=== PATIENT | female | born 1955 | race Caucasian/White ===

== ENCOUNTER 2018-08-28 07:58 | Day surgery (SDC) | payer BC ==
--- NOTE | 2018-08-27 10:37 | HP ---
DATE OF SURGERY: 08/28/2018 ADMISSION DIAGNOSIS: Eleven year follow up colonoscopy. ANTICIPATED PROCEDURE: Colonoscopy. HISTORY OF PRESENT ILLNESS: The patient's last colonoscopy was eleven years ago, presents for colonoscopy. PAST MEDICAL HISTORY: ALLERGIES: PENICILLIN. MEDICATIONS: Omeprazole, Benicar, Lipitor. PAST SURGICAL HISTORY: Right knee. SOCIAL HISTORY: Negative. FAMILY HISTORY: Negative. REVIEW OF SYSTEMS: Negative. PHYSICAL EXAMINATION: VITAL SIGNS: Normal. CHEST: Clear. COR: Regular. ABDOMEN: Satisfactory. IMPRESSION: Eleven year follow up colonoscopy. PLAN: Colonoscopy.
[2018-08-28] MEDS ORDERED: DIPRIVAN 200 MG/20 ML IV ONE (07:59)
[2018-08-28] MEDS ORDERED: Lactated Ringers 1,000 ML IV ONE ×2 (08:06→10:41)
[2018-08-28] MEDS ORDERED: Lactated Ringers 1,000 ML IV SCH (08:30)
--- NOTE | 2018-08-28 10:58 | OP ---
SURGERY DATE/TIME: 08/28/2018 1020 PREOPERATIVE DIAGNOSIS: Screening. POSTOPERATIVE DIAGNOSIS: Four rectal polyps small. PROCEDURE: Colonoscopy complete to cecum with cold polypectomy x4 rectum. SURGEON: Avi Ac M.D. ANESTHESIA: MAC. COMPLICATIONS: None. CONDITION: Stable. INDICATION: A patient requiring evaluation. DESCRIPTION OF PROCEDURE: Taken to endoscopy. Left lateral decubitus position. Anal digital examination satisfactory. Scope introduced. Scope advanced to the cecum. Base of cecum, ileocecal valve was normal. Ascending, hepatic, transverse, splenic, descending, sigmoid, rectum, there were four small 6 mm polyps probably hyperplastic in the mid to upper rectum taken with cold biopsy forceps submitted in one container. There were no substantial hemorrhoids. Mucosa was normal otherwise. Bowel prep 9 out of 9. Withdrawal time was 6 minutes.
[2018-08-28 12:31] VITALS: O2SAT 93
[2018-08-28 12:34] VITALS: BP 121/57; PULSE 76
== END 2018-08-28 11:40 | disposition home or self-care (01) ==
LOC: SDC 07:58
PROVIDERS: ATTEND Surgery
DX: Z12.11 Encounter for screening for malignant neoplasm of colon (principal); K62.1 Rectal polyp
CPT/HCPCS: 88305; 94250; J2704

== ENCOUNTER 2021-05-11 07:05 | Day surgery (SDC) | payer BC ==
--- NOTE | 2021-05-05 14:38 | HP ---
DATE OF SURGERY: 05/11/2021 HISTORY OF PRESENT ILLNESS: The patient is a 66 year-old female who presents with some complaints of left upper quadrant pain. The patient had a gallbladder ultrasound with some stones on it. The patient sees Dr. Nicolas Ariza for some liver steatosis. Reports some anemia. Last hemoglobin 11. She states she has low iron. The patient states that this left upper quadrant pain is flared up by greasy foods. The patient has anemia and has not had GI work up for that. Last colonoscope was in 2018 and she had four hyperplastic polyps. She has never had an EGD. The patient denies any rectal bleeding. PAST MEDICAL HISTORY: Reflux, gout, diabetes, hyperlipidemia, anxiety, hypertension. PAST SURGICAL HISTORY: Bilateral knee replacement. ALLERGIES: PENICILLIN. MEDICATIONS: Omeprazole, Allopurinol, Metformin, vitamin D, paroxetine, atorvastatin, calcium. FAMILY HISTORY: Heart disease, diabetes, atrial fibrillation, kidney disease. SOCIAL HISTORY: None. REVIEW OF SYSTEMS: CONSTITUTIONAL: Denies fever or chills. CHEST: Denies shortness of breath. CVS: Denies chest pain. ABDOMEN: She reports left upper quadrant abdominal pain. Denies nausea, vomiting, diarrhea, constipation or rectal bleeding.. INTEGUMENTARY: Negative. PHYSICAL EXAMINATION: GENERAL: No acute distress. CHEST: Nonlabored. No shortness of breath. CVS: Regular rate and rhythm. ABDOMEN: Soft. EXTREMITIES: No edema. NEUROLOGIC: Alert. PSYCHIATRIC: Appropriate. IMPRESSION: Anemia. PLAN: EGD and colonoscopy with Dr. Avi Ac and also plan for probably laparoscopic cholecystectomy at a later date. As dictated by Julia Lang NP.
[2021-05-11] MEDS ORDERED: Lactated Ringers 1,000 ML IV SCH (07:30)
[2021-05-11] MEDS ORDERED: PHENYLEPHRINE HCL ONE (09:09)
[2021-05-11 09:56] VITALS: PULSE 67; O2SAT 100
[2021-05-11] MEDS ORDERED: Lactated Ringers 1,000 ML IV ONE (09:56)
[2021-05-11 10:20] VITALS: BP 117/58
--- NOTE | 2021-05-11 13:50 | OP ---
SURGERY DATE/TIME: 05/11/2021 0858 PREOPERATIVE DIAGNOSIS: Anemia, follow up polyps. POSTOPERATIVE DIAGNOSES: Three polyps 1 cm sigmoid, 8 mm in hepatic flexure, 1 cm cecal. PROCEDURES: 1) EGD. 2) Colonoscopy complete to cecum. 3) Hot polypectomy x3. SURGEON: Avi Ac M.D. ANESTHESIA: MAC. COMPLICATIONS: None. CONDITION: Stable. INDICATION: A patient requiring evaluation for anemia, hemoglobin 10. She also has history of polyps. She also has history of reflux on omeprazole. DESCRIPTION OF PROCEDURE: She was taken to endoscopy. Left lateral decubitus position. Pharyngoesophageal junction normal. Esophagus normal down to gastroesophageal junction. A very light rim of esophagitis grade 1. I think the omeprazole is exhibiting excellent control. No hiatal hernia. Fundus, body and antrum normal. Pylorus normal. Duodenal bulb normal. Second portion normal. The scope was withdrawn looped upon itself. No hiatal hernia. Scope withdrawn. Anal digital examination satisfactory. There is moderate internal hemorrhoids. There may have been a small posterior fissure rectally at some time that healed up. Slight band there. Scope introduced. Scope advanced to the cecum. Excellent prep. Normal colon. Base of the cecum 1 cm polyp taken with hot biopsy forceps to extinction. The appendiceal orifice is normal. The ileocecal valve is normal. The base of the cecum normal. Ascending satisfactory. Hepatic flexure 8 mm polyp taken with hot biopsy forceps to extinction. Transverse, splenic, descending, sigmoid. In the mid sigmoid, 1 cm polyp taken with hot biopsy forceps to extinction. Rectum, anus moderate internal hemorrhoids. The patient tolerated the procedure satisfactorily. Follow up three years. She will check on her pathology report. We will do a small bowel follow through for completeness as we did not really find a specific etiology for her anemia and she also incidentally has gallstones which will be addressed shortly, too.
== END 2021-05-11 10:24 | disposition home or self-care (01) ==
LOC: SDC 07:05
PROVIDERS: ATTEND Surgery
DX: D12.0 Benign neoplasm of cecum (principal); D12.3 Benign neoplasm of transverse colon; D64.9 Anemia, unspecified; K64.8 Other hemorrhoids; Z86.010 Personal history of colon polyps; Z79.899 Other long term (current) drug therapy; E11.9 Type 2 diabetes mellitus without complications; I10 Essential (primary) hypertension
CPT/HCPCS: 82947; 88305; J2370

== ENCOUNTER 2021-08-03 10:52 | Day surgery (SDC) | payer BC ==
--- NOTE | 2021-07-31 09:40 | HP ---
DATE OF SURGERY: 08/03/2021 HISTORY OF PRESENT ILLNESS: The patient presents with some complaints of abdominal pain and really pain has been minimal with food lately. The patient does have an ultrasound showing that there has been some cholelithiasis of the gallbladder. The patient does occasionally have some left upper quadrant pain. Apparently the patient also has some liver steatosis that the patient has seen Dr. Ariza for in the past. The patient does finally state that fried foods do aggravate this pain. We have done prior endoscopy on this patient to make sure there was nothing else that we were missing. Will proceed with cholecystectomy at this time. PAST MEDICAL HISTORY: Gastroesophageal reflux disease. Gout. Diabetes. Hyperlipidemia. Anxiety. Hypertension. PAST SURGICAL HISTORY: Bilateral knee surgery. ALLERGIES: PENICILLIN. MEDICATIONS: Omeprazole, Allopurinol, Metformin, vitamin D, paroxetine, atorvastatin, calcium. FAMILY HISTORY: Diabetes, heart disease, kidney disease, atrial fibrillation. SOCIAL HISTORY: None reported. REVIEW OF SYSTEMS: CONSTITUTIONAL: Denies fever or chills. CHEST: Denies shortness of breath. CVS: Denies chest pain. ABDOMEN: Reports left upper quadrant pain. Denies nausea, vomiting, diarrhea or constipation. PHYSICAL EXAMINATION: GENERAL: No acute distress. CHEST: Nonlabored. No shortness of breath. CVS: Regular rate and rhythm. ABDOMEN: Soft, tender in the left upper quadrant. IMPRESSION: Symptomatic cholelithiasis. PLAN: Laparoscopic cholecystectomy with Dr. Avi Ac. As dictated by Julia Lang NP.
[~2021-08-03 10:52] MED LIST: Lactated Ringers 1,000 ML IV ONE; Sensorcaine 0.25% 10 ML ONE
[2021-08-03] MEDS ORDERED: Lactated Ringers 1,000 ML IV SCH (11:00)
[2021-08-03] MEDS ORDERED: CLINDAMYCIN-D5W 900 MG/50 ML*** 900 MG/50 ML BAG IV SCH (11:00)
[2021-08-03] MEDS ORDERED: Levofloxacin 500MG/100ML D5W 500 MG/100 ML BAG IV SCH (11:00)
[2021-08-03] MEDS ORDERED: CLINDAMYCIN-D5W 900 MG/50 ML*** 900 MG/50 ML BAG IV ONE (11:27)
[2021-08-03] MEDS ORDERED: Lactated Ringers 1,000 ML IV ONE (11:28)
[2021-08-03] MEDS ORDERED: Levofloxacin 500MG/100ML D5W 500 MG/100 ML BAG IV ONE (11:28)
[2021-08-03] MEDS ORDERED: BRIDION 200MG/2ML IV ONE (12:18)
[2021-08-03] MEDS ORDERED: SUBLIMAZE 100 MCG/2 ML ONE (12:18)
[2021-08-03] MEDS ORDERED: Zemuron 100 MG/10 ML ONE (12:18)
[2021-08-03] MEDS ORDERED: Decadron 4 MG INJ ONE (12:18)
[2021-08-03] MEDS ORDERED: TORAdol 30 mg Injection ONE (12:18)
[2021-08-03] MEDS ORDERED: DIPRIVAN 200 MG/20 ML IV ONE (12:18)
[2021-08-03] MEDS ORDERED: Xylocaine-Mpf 2% 5 Ml Vial ONE (12:18)
[2021-08-03] MEDS ORDERED: Zofran 4 MG/2 ML VIAL ONE (12:18)
[2021-08-03] MEDS ORDERED: Ephedrine Sulfate 50 MG/ML ONE (13:31)
[2021-08-03] MEDS ORDERED: MORPHINE SULFATE 2 MG INJ ONE (14:26)
[2021-08-03] MEDS ORDERED: Hydromorphone 1 mg/ml Injection ONE (14:41)
--- NOTE | 2021-08-03 15:00 | OP ---
SURGERY DATE/TIME: 08/03/2021 1313 PREOPERATIVE DIAGNOSIS: Symptomatic cholelithiasis. POSTOPERATIVE DIAGNOSIS: Symptomatic cholelithiasis. PROCEDURE: Laparoscopic cholecystectomy. SURGEON: Dr. Avi Ac. ANESTHESIA: General endotracheal tube. COMPLICATIONS: None. CONDITION: Stable. INDICATIONS: A patient with upper abdominal pain, ultrasound positive, seen and examined. Procedure discussed and wished to proceed. DESCRIPTION OF PROCEDURE AND FINDINGS: Taken to surgery. General anesthetic, routine prep and drape. Four - 5's. Traditional approach. Cystic duct defined. Cystic artery defined. Both structures triply clipped and transected. Clips noted across and well approximated. Gallbladder rolled out of gallbladder fossa. The gallbladder delivered intact through the epigastric port. Four stones removed and it was popped out intact. Hole closure device with 0 Vicryl. It was about an 8 port size at this time. It was closed. CO2 exsufflated. Field was totally dry. Skin closed with 4-0 Vicryl and Steri-Strips. The patient tolerated the procedure satisfactorily.
== END 2021-08-03 16:15 | disposition home or self-care (01) ==
LOC: SDC 10:52
PROVIDERS: ATTEND Surgery
DX: K80.20 Calculus of gallbladder without cholecystitis without obstruction (principal); E11.9 Type 2 diabetes mellitus without complications
CPT/HCPCS: 82947; 88304; J1100; J1170; J1885; J1956; J2270; J2405; J2704; J3010

== ENCOUNTER 2024-09-04 18:48 | Emergency (ER) | payer MEDICARE ==
--- NOTE | 2024-09-04 19:04 | ERPHSYRPT ---
- History of Present Illness Time Seen by Provider: 09/04/24 19:04 Historian: patient, family Exam Limitations: no limitations Patient Subjective Stated Complaint: left flank pain Triage Nursing Assessment: patient states that she started having left sided flank pain yesyterday and it has gotten wose throughout the day. n/v as well Physician History: This is an obese 69-year-old white female patient of nurse practitioner Ben who arrives by private vehicle escorted/accompanied by her spouse with the complaint of left flank pain that began on 09/03/2024. The pain was worse this morning and throughout the day and associated with nausea and vomiting. She describes the pain as sharp. Patient has had no history of known kidney stones or ureteral stones. Her urinalysis today showed significant hematuria and a s ignificant kidney infection. I reviewed these outpatient labs. There is no need to repeat the labs as they were performed at 8 AM today. Patient has a history of depression, gastroesophageal reflux disease, hypertension, diabetes, hyperlipidemia and gout. She has no chest pain and she denies shortness of breath. Timing/Duration: yesterday Quality: sharpness, stabbing Abdominal Pain Onset Location: flank (Left flank) Pain Radiation: no radiation Severity of Pain-Max: moderate Modifying Factors: Improves With: vomiting Associated Symptoms: loss of appetite, nausea, vomiting, No chest pain, No headache, No neck pain, No shortness of breath Previous symptoms: no prior history, no recent treatment Allergies/Adverse Reactions: Penicillins Allergy (Verified 09/04/24 19:01) Rash Home Medications: Atorvastatin Calcium [Lipitor 40Mg] 80 mg PO HS 08/19/18 [History] Olmesartan/Hydrochlorothiazide [Benicar Hct 40-12.5 mg Tablet] 1 each PO DAILY 08/19/18 [History] Omeprazole 20 MG [Prilosec 20 mg] 20 mg PO DAILY 08/19/18 [History] Allopurinol 300 mg [Zyloprim 300 mg] 300 mg PO DAILY 05/01/21 [History] Ergocalciferol (Vitamin D2) [Vitamin D] 50,000 unit PO WEEKLY 05/01/21 [History] Metformin HCl 500 mg PO DAILY 05/01/21 [History] PARoxetine HCL [Paroxetine HCl] 40 mg PO DAILY 05/01/21 [History] Hx Influenza Vaccination/Date Given: Yes Hx Pneumococcal Vaccination/Date Given: No Travel Risk - International Travel Have you traveled outside of the country in past 3 weeks: No - Emerging Infectious Disease Are you exhibiting symptoms associated with any current EIDs: No - Review of Systems Constitutional: No Symptoms Eyes: No Symptoms Ears, Nose, & Throat: No Symptoms Respiratory: No Symptoms Cardiac: No Symptoms Abdominal/Gastrointestinal: Nausea, Vomiting, Appetite Changes, No Abdominal Pain, No Diarrhea, No Constipation Genitourinary Symptoms: Hematuria, Flank Pain (The left side) Musculoskeletal: No Symptoms Skin: No Symptoms Neurological: No Symptoms Psychological: No Symptoms Endocrine: No Symptoms Hematologic/Lymphatic: No Symptoms Immunological/Allergic: No Symptoms All Other Systems: Reviewed and Negative - Past Medical History Pertinent Past Medical History: Yes Neurological History: No Pertinent History ENT History: No Pertinent History Cardiac History: Hypertension Respiratory History: Sleep Apnea Endocrine Medical History: Diabetes Type II Musculoskeletal History: Osteoarthritis, Rheumatoid Arthritis GI Medical History: GERD History: No Pertinent History Psycho-Social History: No Pertinent History Female Reproductive Disorders: No Pertinent History Other Medical History: enlarged liver, anemia - Past Surgical History Past Surgical History: Yes Neuro Surgical History: No Pertinent History Cardiac: No Pertinent History Respiratory: No Pertinent History Gastrointestinal: No Pertinent History Genitourinary: No Pertinent History Musculoskeletal: Orthopedic Surgery, Joint Replacement Female Surgical History: Lumpectomy Other Surgical History: bilat knee replacement, rigth breast lumpectomy - Social History Smoking Status: Never smoker Exposure to second hand smoke: No Drug Use: none - Nursing Vital Signs Nursing Vital Signs: Initial Vital Signs Pulse Rate 81 09/04/24 18:54 Respiratory Rate 20 09/04/24 18:54 Blood Pressure 135/70 09/04/24 18:54 O2 Sat by Pulse Oximetry 100 09/04/24 18:54 Pain Scale Pain Intensity 3 - Physical Exam General Appearance: mild distress, alert, anxiety, obese Eye Exam: PERRL/EOMI, eyes nml inspection Ears, Nose, Throat Exam: normal ENT inspection, moist mucous membranes Neck Exam: normal inspection, non-tender, supple, full range of motion Respiratory Exam: normal breath sounds, lungs clear, airway intact, No chest tenderness, No respiratory distress Cardiovascular Exam: regular rate/rhythm, normal heart sounds, normal peripheral pulses Gastrointestinal/Abdomen Exam: soft, normal bowel sounds, No tenderness, No guarding, No rebound Pelvic Exam: not done Rectal Exam: not done Back Exam: normal inspection, normal range of motion, CVA tenderness (Left side), No vertebral tenderness Extremity Exam: normal inspection, normal range of motion, pelvis stable Neurologic Exam: alert, oriented x 3, cooperative, 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 nml as tested, nml cerebellar function, nml station & gait, sensation nml Skin Exam: normal color, warm, dry Lymphatic Exam: No adenopathy SpO2 Interpretation: normal SpO2: 100 O2 Delivery: Room Air - Course Nursing assessment & vital signs reviewed: Yes Ordered Tests: Active Orders 24 hr Category Date Time Status IV Insertion STAT Care 09/04/24 19:04 Active ABDOMEN AND PELVIS W/0 CONTRAS [CT] Stat Exams 09/04/24 19:05 Taken AMYLASE Stat Lab 09/04/24 19:04 Ordered LIPASE Stat Lab 09/04/24 19:04 Ordered Medication Summary Generic Name Dose Route Start Last Admin Trade Name Freq PRN Reason Stop Dose Admin Levofloxacin/Dextrose 500 mg in 100 mls @ 100 mls/hr 09/04/24 20:14 09/04/24 20:24 Levofloxacin 500mg/100ml D5w IV 09/04/24 21:13 100 mls/hr STAT STA 100 mls/hr Administration Discontinued Medications Generic Name Dose Route Start Last Admin Trade Name Freq PRN Reason Stop Dose Admin Hydromorphone HCl 1 mg 09/04/24 19:04 09/04/24 19:29 Hydromorphone 1 Mg/1ml Inj IV 09/04/24 19:05 1 mg STAT ONE Administration Hydromorphone HCl Confirm 09/04/24 19:28 Hydromorphone 1 Mg/1ml Inj Administered 09/04/24 19:29 Dose 1 mg .ROUTE .STK-MED ONE Sodium Chloride 1,000 mls @ 999 mls/hr 09/04/24 19:04 09/04/24 19:48 Sodium Chloride 0.9% 1000 Ml IV 09/04/24 20:04 999 mls/hr .Q1H1M STA Administration Sodium Chloride Confirm 09/04/24 19:46 Sodium Chloride 0.9% 1000 Ml Administered 09/04/24 19:47 Dose 1,000 mls @ ud .ROUTE .STK-MED ONE Levofloxacin/Dextrose Confirm 09/04/24 20:23 Levofloxacin 500mg/100ml D5w Administered 09/04/24 20:24 Dose 500 mg in 100 mls @ ud IV .STK-MED ONE Ketorolac Tromethamine 30 mg 09/04/24 19:04 09/04/24 19:28 Ketorolac Tromethamine 30 Mg/Ml Inj IV 09/04/24 19:05 30 mg STAT ONE Administration Ketorolac Tromethamine Confirm 09/04/24 19:27 Ketorolac Tromethamine 30 Mg/Ml Inj Administered 09/04/24 19:28 Dose 30 mg .ROUTE .STK-MED ONE Ondansetron HCl 4 mg 09/04/24 19:04 09/04/24 19:29 Ondansetron Hcl 4 Mg/2 Ml Vial IV 09/04/24 19:05 4 mg STAT ONE Administration Ondansetron HCl Confirm 09/04/24 19:27 Ondansetron Hcl 4 Mg/2 Ml Vial Administered 09/04/24 19:28 Dose 4 mg .ROUTE .STK-MED ONE - Progress Progress: improved, pain not gone completely, re-examined Progress Note: 09/04/24 19:14 My medical decision making and the assignment of moderate complexity to this patient's medical issue today is based on review of the patient's past medical history, review of patient's medication list, review the patient drug allergy list, history present dose and physical findings on examination. The workup in this patient includes placement of intravenous line, infusion of normal saline solution, review of the patient's outpatient labs performed less than 12 hours ago, CT scan of the abdomen pelvis without contrast. Will also infuse intravenous Toradol, Dilaudid and Zofran. Differential diagnosis includes but is not limited to pyelonephritis, ureterolithiasis, pancreatitis 09/04/24 20:56 I reviewed and interpreted the patient's laboratory data results. When comparing the patient's hemoglobin level today which was 9.9, it is in the range and even slightly higher, then the previous levels of 9.5 and 9.7. Patient has a significant urinary tract infection and significant hematuria on her urinalysis. Patient's GFR is 56.9. Values in the range of her usual GFR levels. 09/04/24 20:[address] scan of the abdomen pelvis was interpreted by the radiologist and I reviewed the impression. The impression states there are no comparison films. There is Biber lateral renal punctate calculi. There is a 9.7 cm x 11.7 cm x 10.8 cm lobular left renal mass. Probably malignant. No hydronephrosis present. Counseled pt/family regarding: lab results, diagnosis, need for follow-up, rad results Medical Desision Making - Independent Historian Additional History obtained from: Spouse - Diagnostic Testing Diagnostic test were ordered, analyzed, and reviewed by me: Yes Radiological Interpretation: Reviewed by me, Teleradiologist Report - Risk of complications The pt has a mod risk of morbidity or mortality based on: Need for prescription drug management - Departure Departure Disposition: Home Clinical Impression: Urinary tract infection, Left kidney mass Condition: Stable Critical Care Time: No Referrals: MOISES VOGT NP [Primary Care Provider] - Follow up/PCP as directed Additional Instructions: Drink plenty of fluids take your medications as prescribed. Call your unemployment insurance director on 09/07/2024 in the morning, in order to obtain further instructions for management including referral to urologist if indicated. He may always come to our emergency department. However, another option is, if your symptoms worsen over the weekend to go directly to [facility] or [facility] [place] for further evaluation management including evaluation by a urologist. Prescriptions: Levofloxacin [Levaquin 500 MG Tablet] 500 mg PO DAILY #7 tablet
[2024-09-04] MEDS ORDERED: Zofran 4 MG/2 ML VIAL ONE (19:27)
[2024-09-04] MEDS ORDERED: TORAdol 30 mg Injection ONE (19:27)
[2024-09-04] MEDS: TORAdol 30 mg Injection IV ONE (19:28)
[2024-09-04] MEDS ORDERED: Hydromorphone 1 mg/ml Injection ONE (19:28)
[2024-09-04] MEDS: Hydromorphone 1 mg/ml Injection IV ONE (19:29)
[2024-09-04] MEDS: Zofran 4 MG/2 ML VIAL IV ONE (19:29)
[2024-09-04] MEDS ORDERED: Sodium Chloride 0.9% 1000 ML 1,000 ML ONE (19:46)
[2024-09-04] MEDS: Sodium Chloride 0.9% 1000 ML 1,000 ML IV STA (19:48)
[2024-09-04] MEDS ORDERED: Levofloxacin 500MG/100ML D5W 500 MG/100 ML BAG IV ONE (20:23)
[2024-09-04] MEDS: Levofloxacin 500MG/100ML D5W 500 MG/100 ML BAG IV STA (20:24)
[2024-09-04 21:01] VITALS: O2SAT 100
[2024-09-04 21:10] VITALS: BP 113/60; PULSE 76; RESP 18
[2024-09-04] MEDS ORDERED: NORCO 5/325 MG ONE (21:17)
[2024-09-04] MEDS: NORCO 5/325 MG PO ONE (21:17)
--- NOTE | 2024-09-05 08:17 | XRAY ---
Indication: Left flank pain. Multiple contiguous axial images obtained through the abdomen and pelvis without contrast using renal stone protocol. Comparison: None Lung bases clear of infiltrate/effusion. Heart is enlarged. A few nonobstructing bilateral renal punctate calculi. Left kidney demonstrates a 9.7 x 11.7 x 10.8 cm lobular mass worrisome for malignancy. Central hypoattenuation may represent tissue necrosis. Left mid renal well-circumscribed 3.2 cm exophytic cyst. No hydronephrosis or hydroureter. Noncontrasted stomach and bowel loops appear nonobstructed. Normal appendix. Minimal sigmoid diverticulosis. Previous cholecystectomy. No free fluid/air. Remaining liver, pancreas, spleen, adrenal glands, urinary bladder, and uterus are unremarkable for noncontrast exam. Minimal scattered arteriosclerotic calcifications. Osseous structures intact with osteopenia, moderate levorotoscoliosis centered at L2, mild/moderate multilevel thoracolumbar degenerative spondylosis, 2-3 mm anterolisthesis L5 on S1, and moderate degenerative changes both hips. No suspicious bony lesions. Impression: 1. Nonobstructing bilateral renal punctate calculi and left renal cyst. 2. Large left renal mass worrisome for malignancy. Contrast examination may yield further information. 3. Incidental cardiomegaly, sigmoid diverticulosis, arteriosclerotic disease, and chronic bony findings.
== END 2024-09-04 21:34 | disposition home or self-care (01) ==
LOC: ED 18:48
DX: N39.0 Urinary tract infection, site not specified (principal); N28.89 Other specified disorders of kidney and ureter; R10.9 Unspecified abdominal pain; R11.2 Nausea with vomiting, unspecified
CPT/HCPCS: 74176; 96360; 96361; 96365; 96374; 96375; 99284; J1171; J1885; J1956; J2405; A9270-GY

== ENCOUNTER 2024-09-24 22:59 | Emergency (ER) | payer MEDICARE ==
--- NOTE | 2024-09-24 23:20 | ERPHSYRPT ---
- History of Present Illness Time Seen by Provider: 09/24/24 23:20 Source: patient Exam Limitations: no limitations Physician History: The patient presents with difficulty urinating and headache following a kidney biopsy. Following a kidney biopsy on the left kidney earlier today, they have experienced difficulty urinating, accompanied by pain and a burning sensation. They noted the presence of a clot, which they believe may be obstructing urine flow. No prior issues with urination or burning sensation were reported before the biopsy. In addition to urinary issues, they report experiencing a severe headache that began after the biopsy. They have taken Tylenol, initially two tablets of 375 mg and then two more about an hour ago, but it has not alleviated the headache. They experienced nausea and vomiting twice since returning home, but they do not feel nauseated at present. No diarrhea, coughing, congestion, muscle aches, or fever. They have a history of a polyp removal approximately six weeks ago, with no subsequent urinary problems until today. They were previously prescribed antibiotics and hydrocodone for pain management but have only taken two doses of the pain medication due to concerns about addiction, as advised by their granddaughter. Timing/Duration: today Activites at Onset: rest Quality: cramping, fullness Onset Location: suprapubic Pain Radiation: none Severity of Pain-Max: mild Severity of Pain-Current: mild Prior abdominal problems: UTI Sexual intercourse history: non-contributory Modifying Factors: Improves With: nothing Associated Symptoms: abdominal pain, dysuria, No fever, No chills, No diaphoresis, No nausea, No vomiting Allergies/Adverse Reactions: Penicillins Allergy (Verified 09/24/24 23:21) Rash Home Medications: Atorvastatin Calcium [Lipitor 40Mg] 80 mg PO HS 08/19/18 [History] Olmesartan/Hydrochlorothiazide [Benicar Hct 40-12.5 mg Tablet] 1 each PO DAILY 08/19/18 [History] Omeprazole 20 MG [Prilosec 20 mg] 20 mg PO DAILY 08/19/18 [History] Allopurinol 300 mg [Zyloprim 300 mg] 300 mg PO DAILY 05/01/21 [History] Ergocalciferol (Vitamin D2) [Vitamin D] 50,000 unit PO WEEKLY 05/01/21 [History] Metformin HCl 500 mg PO DAILY 05/01/21 [History] PARoxetine HCL [Paroxetine HCl] 40 mg PO DAILY 05/01/21 [History] Hx Influenza Vaccination/Date Given: Yes Hx Pneumococcal Vaccination/Date Given: No Travel Risk - Emerging Infectious Disease Are you exhibiting symptoms associated with any current EIDs: No - Review of Systems All Other Systems: Reviewed and Negative - Past Medical History Pertinent Past Medical History: Yes Neurological History: No Pertinent History ENT History: No Pertinent History Cardiac History: Hypertension Respiratory History: Sleep Apnea Endocrine Medical History: Diabetes Type II Musculoskeletal History: Osteoarthritis, Rheumatoid Arthritis GI Medical History: GERD History: No Pertinent History Psycho-Social History: No Pertinent History Female Reproductive Disorders: No Pertinent History Other Medical History: enlarged liver, anemia - Past Surgical History Past Surgical History: Yes Neuro Surgical History: No Pertinent History Cardiac: No Pertinent History Respiratory: No Pertinent History Gastrointestinal: No Pertinent History Genitourinary: No Pertinent History Musculoskeletal: Orthopedic Surgery, Joint Replacement Female Surgical History: Lumpectomy Other Surgical History: bilat knee replacement, rigth breast lumpectomy - Social History Smoking Status: Never smoker Exposure to second hand smoke: No Drug Use: none - Nursing Vital Signs Nursing Vital Signs: Initial Vital Signs Pulse Rate 79 09/24/24 23:18 Blood Pressure 116/68 09/24/24 23:18 O2 Sat by Pulse Oximetry 100 09/24/24 23:18 Pain Scale Pain Intensity 5 - Physical Exam General Appearance: no apparent distress Gastrointestinal/Abdomen Exam: soft, tenderness (suprapubic), No distention, No mass, No guarding, No rebound Neurologic Exam: alert, oriented x 3, cooperative Skin Exam: normal color, warm, dry, No rash SpO2 Interpretation: normal O2 Delivery: Room Air - Course Nursing assessment & vital signs reviewed: Yes Ordered Tests: Active Orders 24 hr Category Date Time Status CULTURE,URINE Stat Lab 09/24/24 23:21 Received UA W/RFX UR CULTURE Stat Lab 09/24/24 23:21 Completed Medication Summary Discontinued Medications Generic Name Dose Route Start Last Admin Trade Name Freq PRN Reason Stop Dose Admin Sodium Chloride 1,000 mls @ 999 mls/hr 09/24/24 23:19 09/25/24 01:19 Sodium Chloride 0.9% 1000 Ml IV 09/25/24 00:19 Infused .Q1H1M STA Infusion Sodium Chloride Confirm 09/24/24 23:42 Sodium Chloride 0.9% 1000 Ml Administered 09/24/24 23:43 Dose 1,000 mls @ ud .ROUTE .[facility] Lab/Rad Data: Laboratory Results 09/24/24 Range/Units 23:21 Urine Color Red A (Yellow) Urine Appearance Cloudy A (Clear) Urine pH 5.5 (4.6-8.0) Ur Specific [place] 1.020 (1.005-1.030) Urine Protein 300 A (Negative) Urine Glucose (UA) Negative (Negative) mg/dL Urine Ketones Negative (Negative) Urine Blood Large A (Negative) Urine Nitrite Negative (Negative) Urine Bilirubin Negative (Negative) Urine Urobilinogen 0.2 (0.2) mg/dL Ur Leukocyte Esterase Trace A (Negative) U Hyaline Cast (Auto) NONE SEEN (0-2) /LPF Urine Microscopic RBC >100 A (0-5) /HPF Urine Microscopic WBC 51-100 A (0-5) /HPF Ur Epithelial Cells None Seen (None Seen) /HPF Urine Bacteria None Seen (None Seen) /HPF Urine Culture Reflexed ORDERED SEPARATELY (NO) - Progress Air Movement: good Progress Note: Urinary retention with hematuria Acute urinary retention and hematuria following a left kidney biopsy, with difficulty and pain during urination. A significant clot likely causing obstruction. Potential infection considered, but no prior urinary issues before the biopsy. Informed consent included potential complications such as bleeding and infection. - In and out cath performed, 300cc bloody urine with large clot on initial ev acuation - Administer IV fluids to help flush out the clot and relieve urinary retention - Check urine sample for signs of infection or other abnormalities Headache and nausea Severe headache and nausea post-kidney biopsy, with vomiting after taking acetaminophen. Headache persists despite medication. Suspected dehydration as a contributing factor. Advised against anti-inflammatories or narcotics due to bleeding risk and potential headache exacerbation. Initiate IV fluids to address dehydration and reassess need for further intervention. - Administer IV fluids to address potential dehydration and alleviate headache - Monitor symptoms and consider anti-inflammatories if necessary, but prefer to avoid them due to bleeding risk 09/25/24 01:43 UA shows signs of infection, will Tx with Macrobid 100mg BID x 5 days. Blood Culture(s) Obtained: No Antibiotics given: No Counseled pt/family regarding: lab results, diagnosis, need for follow-up Medical Desision Making - Diagnostic Testing Diagnostic test were ordered, analyzed, and reviewed by me: Yes Radiological Interpretation: Interpreted by me - Risk of complications Low Risk: Low risk of morbidity from additional dx testing or treatment - Departure Departure Disposition: Home Clinical Impression: Hematuria, Postprocedural urinary retention, UTI (urinary tract infection), Left kidney mass Condition: Good Critical Care Time: No Referrals: [facility] [Primary Care Provider] - Follow up/PCP as directed Instructions: Urinary Retention (DC) Prescriptions: Nitrofurantoin Macro 100 mg [Macrobid 100MG Capsule] 100 mg PO BID 5 Days #9 cap
[2024-09-24 23:30] VITALS: RESP 20; TEMP 97.4
[2024-09-24] MEDS ORDERED: Sodium Chloride 0.9% 1000 ML 1,000 ML ONE (23:42)
[2024-09-24] MEDS: Sodium Chloride 0.9% 1000 ML 1,000 ML IV STA (23:43)
[2024-09-25 01:32] LABS: Appearance Cloudy (Clear); Bacteria None Seen /HPF (None Seen); Bilirubin Negative (Negative); Blood Large (Negative); Epithelial Cells None Seen /HPF (None Seen); Glucose, Urine Negative (Negative); Hyaline Casts NONE SEEN /LPF (0-2); Ketones Negative (Negative); Leukocyte Esterase Trace (Negative); Nitrite Negative (Negative); Ph 5.5 (4.6-8.0); Protein,Urine Dip 300 (Negative); RBC >100 /HPF (0-5); Urobilinogen 0.2 mg/dL (0.2); WBC 51-100 /HPF (0-5)
[2024-09-25] MEDS ORDERED: Macrobid 100MG Capsule ONE (01:47)
[2024-09-25] MEDS: Macrobid 100MG Capsule PO ONE (01:48)
[2024-09-25] MEDS ORDERED: Flomax 0.4 MG ONE (02:13)
[2024-09-25] MEDS: PYRIDIUM 200 MG PO ONE (02:14)
[2024-09-25] MEDS ORDERED: PYRIDIUM 200 MG ONE (02:14)
[2024-09-25] MEDS: Flomax 0.4 MG PO SCH (02:14)
[2024-09-25 02:29] VITALS: O2SAT 100
[2024-09-25 02:48] VITALS: BP 162/96; PULSE 85
== END 2024-09-25 02:49 | disposition home or self-care (01) ==
LOC: ED 22:59
DX: N39.0 Urinary tract infection, site not specified (principal); N99.89 Other postprocedural complications and disorders of genitourinary system; R33.8 Other retention of urine; N28.89 Other specified disorders of kidney and ureter; R31.9 Hematuria, unspecified; R51.9 Headache, unspecified; I10 Essential (primary) hypertension; E11.9 Type 2 diabetes mellitus without complications; Z79.84 Long term (current) use of oral hypoglycemic drugs; Z79.899 Other long term (current) drug therapy
CPT/HCPCS: 81001; 87086; 96360; 99284; A9270-GY

== ENCOUNTER 2025-08-31 09:26 | Emergency (ER) | payer MEDICARE ==
[2025-08-31 10:14] VITALS: TEMP 98
[2025-08-31] MEDS ORDERED: NORCO 5/325 MG ONE (10:39)
[2025-08-31] MEDS: NORCO 5/325 MG PO ONE (10:40)
[2025-08-31 10:51] LABS: Glucose, Urine Negative (Negative); Protein,Urine Dip 30 (Negative); WBC >100 /HPF (0-5)
--- NOTE | 2025-08-31 12:06 | XRAY ---
CLINICAL HISTORY: pain, h/o kidney cancer COMPARISON: None. TECHNIQUE: CT non-contrast scan of lumbar spine done. Axial images obtained with reformatted coronal and sagittal images and submitted for interpretation. One of the following dose reduction techniques were utilized for this exam: Automated exposure control, adjustment of the mA and/or kV according to patient size, use of iterative reconstruction. FINDINGS: Vertebrae: Levoscoliosis is present. No fractures, lytic or sclerotic lesions. Normal bone density without evidence of osteopenia or osteoporosis. Intervertebral Discs: Disc space narrowing is present, greatest at L3-L4 and L5-S1.No evidence of disc herniation, bulging, or significant degeneration. Spinal Canal and Neural Foramina: Spinal canal is of normal caliber with no evidence of spinal stenosis. Neural foramina are patent bilaterally at all levels. No evidence of nerve root compression. There is no significant disc pathology. No exiting nerve root or spinal cord compression. Normal morphology of the ligamentum flava. No significant spinal canal and neural foraminal stenosis. Facet Joints: Degenerative facet arthropathy is noted at L3-L4, L4-L5 and L5-S1. Soft Tissues: Normal appearance of the paraspinal soft tissues. No abnormal masses, fluid collections, or signs of inflammation. IMPRESSION: Levoscoliosis. Degenerative changes of the disc spaces and facets as described. Electronically Signed by: Maki Lopez MD. (08/31/2025 12:05:51 EST)
--- NOTE | 2025-08-31 12:15 | XRAY ---
CLINICAL HISTORY: Left flank pain COMPARISON: Comparison is made with 09/04/24 TECHNIQUE: Non-contrast CT of the abdomen and pelvis was performed, with the following protocol: axial images, and reconstructed coronal and sagittal images. No intravenous contrast was administered. One of the following dose reduction techniques was utilized for this exam: Automated exposure control, adjustment of the mA and/or kV according to patient size, and use of iterative reconstruction. FINDINGS: Abdomen: Liver: Normal in size, shape, and density. No focal lesions, cysts, or masses were identified. Gallbladder and Biliary System: Cholecystectomy. Pancreas: Pancreatic head, body, and tail are visualized and appear normal in size and density. No pancreatic masses or calcifications were noted. Spleen: Normal in size, shape, and density. No splenic lesions or masses were identified. Kidneys and Adrenal Glands: The left kidney is absent. The right kidney is normal in size, shape and position. Cortical thickness is within normal limits. 2 mm stone is present within the midpole of the right kidney. No hydronephrosis. Adrenal glands are unremarkable. Appendix: The appendix is normal in size without jonathan appendiceal fat stranding, and without an appendicolith. No evidence of appendiceal abscess or perforation. Pelvis: Urinary Bladder: Normal in contour and wall thickness. No intraluminal lesions. Uterus: Hysterectomy. Ovaries: Not well visualized but no gross abnormalities noted. Vagina: Normal in contour and wall thickness. Cervix: No evidence of mass or abnormal thickening. Peritoneal and Retroperitoneal Structures: No free fluid or abnormal fluid collections were identified within the abdomen or pelvis. No lymphadenopathy was noted. Bowel: Colonic diverticulosis is present. The visualized bowel loops are otherwise normal in caliber and appearance. No evidence of bowel obstruction or wall thickening. Bones and Soft Tissues: Pelvic bones and soft tissues are unremarkable. No fractures or abnormal masses were identified. IMPRESSION: Nonobstructing right renal calculus. Absent left kidney. Cholecystectomy. Hysterectomy. Colonic diverticulosis. Electronically Signed by: Maki Lopez MD. (08/31/2025 12:13:13 EST)
--- NOTE | 2025-08-31 12:38 | ERPHSYRPT ---
- History of Present Illness Time Seen by Provider: 08/31/25 12:50 Patient Subjective Stated Complaint: C/O left lower back pain that began yesterday. Denies any abdominal pain. States pain is severe enough at times to cause nausea; no vomiting. Denies any falls or injury. "I hope I've just pulled a muscle." Patient had left Kidney removed in September 2024 due to Kidney CA. Triage Nursing Assessment: Patient ambulated back to ER with a slow gait. S/S of pain noted; grimacing, hunched gait, gaurding. No SOB. No cough. No skin alterations to area of reported pain. Urine specimen obtained. Physician History: Patient is a 70-year-old female history of kidney cancer post left nephrectomy, hyperlipidemia type 2 diabetes presents to our ED for evaluation of left lower back pain that started yesterday. No trauma no fever. Pain appears to be worse with movement. Patient feels she pulled a muscle. Patient had a nephrectomy in September 2024. No associated chest pain or shortness of breath. No nausea vomiting or diaphoresis. No saddle anesthesia. No recent back procedures. No change in bowel bladder function. Patient voices no other complaints or concerns at this time. Of note patient was diagnosed with a urinary tract infection on Saturday, 4 days ago. Patient was started on Keflex. Patient states that her symptoms appear to have gotten worse and spite of the Keflex. at bedside. They voiced no other complaints or concerns at this time. Portions of this note were created with voice recognition technology. There may be grammatical, spelling, punctuation or sound alike errors Timing/Duration: day(s) (1 day) Severity: moderate Modifying Factors: Improves With: nothing Associated Symptoms: denies symptoms Allergies/Adverse Reactions: Penicillins Allergy (Verified 08/31/25 09:54) Rash Home Medications: Atorvastatin Calcium [Lipitor 40Mg] 80 mg PO DAILY 08/19/18 [History] Omeprazole 20 MG [Prilosec 20 mg] 20 mg PO DAILY 08/19/18 [History] Allopurinol 300 mg [Zyloprim 300 mg] 300 mg PO DAILY 05/01/21 [History] Metformin HCl 500 mg PO DAILY 05/01/21 [History] PARoxetine HCL [Paroxetine HCl] 40 mg PO DAILY 05/01/21 [History] Cephalexin Mh 500 mg [Keflex 500 mg] 500 mg PO BID 08/31/25 [History] Melatonin 10 mg PO HS 08/31/25 [History] Pembrolizumab [Keytruda] See Rx Instructions .ROUTE .COMPLEX 08/31/25 [History] Trazodone HCl 50 mg [Desyrel 50 mg] 50 mg PO DAILY 08/31/25 [History] Hx Tetanus, Diphtheria Vaccination/Date Given: Yes Hx Influenza Vaccination/Date Given: Yes Hx Pneumococcal Vaccination/Date Given: No Immunizations Up to Date: Yes Travel Risk - International Travel Have you traveled outside of the country in past 3 weeks: No - Emerging Infectious Disease Are you exhibiting symptoms associated with any current EIDs: No Symptoms: Vomitting - Review of Systems All Other Systems: Reviewed and Negative - Past Medical History Pertinent Past Medical History: Yes Neurological History: No Pertinent History ENT History: No Pertinent History Cardiac History: High Cholesterol Respiratory History: Sleep Apnea Endocrine Medical History: Diabetes Type II Musculoskeletal History: Osteoarthritis, Rheumatoid Arthritis GI Medical History: GERD History: Kidney Cancer Psycho-Social History: No Pertinent History Female Reproductive Disorders: No Pertinent History Other Medical History: enlarged liver, anemia, HTN resolved and no longer takes HTN medications, Kidney CA (Left kidney removed September 2024), insomnia - Past Surgical History Past Surgical History: Yes Neuro Surgical History: No Pertinent History Cardiac: No Pertinent History Respiratory: No Pertinent History Gastrointestinal: No Pertinent History Genitourinary: Kidney Surgery Musculoskeletal: Orthopedic Surgery, Joint Replacement Female Surgical History: Lumpectomy Other Surgical History: bilat knee replacement, rigth breast lumpectomy, left kidney removed September 2024 - Social History Smoking Status: Never smoker Exposure to second hand smoke: No Drug Use: none - Social Determinants of Health Will the patient participate in the screening: Yes Do you worry about a steady place to live?: No Do you have any problems with any of the following?: No known problems In the past 12 months,have you had to go without utilities?: No Transportation Issues: No Has anyone in your support network made you feel unsafe?: No Have you or anyone in your house had to go w/o enough food: No - Nursing Vital Signs Nursing Vital Signs: Initial Vital Signs Temperature 98 F 08/31/25 09:26 Pulse Rate 62 08/31/25 09:26 Respiratory Rate 19 08/31/25 09:26 Blood Pressure 127/67 08/31/25 09:26 O2 Sat by Pulse Oximetry 100 08/31/25 09:26 Pain Scale Pain Intensity 8 - Physical Exam General Appearance: no apparent distress, alert Eye Exam: PERRL/EOMI, eyes nml inspection Ears, Nose, Throat Exam: normal ENT inspection, moist mucous membranes Neck Exam: normal inspection, full range of motion Respiratory Exam: normal breath sounds, lungs clear, airway intact, No respiratory distress Cardiovascular Exam: regular rate/rhythm, normal heart sounds, normal peripheral pulses Gastrointestinal/Abdomen Exam: soft, normal bowel sounds, No tenderness, No mass Back Exam: normal inspection, normal range of motion, No CVA tenderness, No vertebral tenderness Extremity Exam: normal inspection, normal range of motion, pelvis stable Neurologic Exam: alert, oriented x 3, cooperative, normal mood/affect, sensation nml, No motor deficits Skin Exam: normal color, warm, dry, No rash Lymphatic Exam: No adenopathy SpO2 Interpretation: normal SpO2: 96 O2 Delivery: Room Air - Course Nursing assessment & vital signs reviewed: Yes - CT Exams Abdomen/Pelvis CT Interpretation: Tele-radiologist Report (Right nephrolithiasis, diverticulosis no acute findings) Other CT Interpretation: Tele-radiologist Report (CT lumbar spine reconstructive views shows levoscoliosis, no acute findings) Ordered Tests: Active Orders 24 hr Category Date Time Status IV Insertion STAT Care 08/31/25 12:48 Active ABDOMEN AND PELVIS W/0 CONTRAS [CT] Stat Exams 08/31/25 10:25 Completed RECONSTRUCTION [CT] Stat Exams 08/31/25 10:25 Completed CBC W DIFF Stat Lab 08/31/25 12:55 Completed CMP Stat Lab 08/31/25 12:55 Completed CULTURE,URINE Stat Lab 08/31/25 10:20 Received UA W/RFX UR CULTURE Stat Lab 08/31/25 10:20 Completed Medication Summary Discontinued Medications Generic Name Dose Route Start Last Admin Trade Name Freq PRN Reason Stop Dose Admin Hydrocodone Bitart/Acetaminophen 1 tab 08/31/25 10:26 08/31/25 10:40 Hydrocodone/Apap 5/325 1 Tab Tablet PO 08/31/25 10:27 1 tab STAT ONE Administration Hydrocodone Bitart/Acetaminophen Confirm 08/31/25 10:39 Hydrocodone/Apap 5/325 1 Tab Tablet Administered 08/31/25 10:40 Dose 1 tab .ROUTE .STK-MED ONE Sodium Chloride 1,000 mls @ 999 mls/hr 08/31/25 12:48 08/31/25 14:06 Sodium Chloride 0.9% 1000 Ml IV 08/31/25 13:48 Infused .Q1H1M STA Infusion Sodium Chloride Confirm 08/31/25 13:04 Sodium Chloride 0.9% 1000 Ml Administered 08/31/25 13:05 Dose 1,000 mls @ ud .ROUTE .STK-MED ONE Levofloxacin 500 mg 08/31/25 12:38 08/31/25 12:41 Levofloxacin 500 Mg Tablet PO 08/31/25 12:39 500 mg STAT ONE Administration Levofloxacin Confirm 08/31/25 12:40 Levofloxacin 500 Mg Tablet Administered 08/31/25 12:41 Dose 500 mg .ROUTE .STK-MED ONE Lab/Rad Data: Laboratory Result Diagrams 08/31/25 12:55 08/31/25 12:55 Laboratory Results 08/31/25 08/31/25 08/31/25 Range/Units 12:55 12:55 10:20 WBC 9.4 (3.98-10.04) x10^3/uL RBC 3.57 L (3.93-5.22) x10^6/uL Hgb 11.6 (11.2-15.7) g/dL Hct 35.0 (34.1-44.9) % MCV 98.0 H (79.4-94.8) fL MCH 32.5 H (25.6-32.2) pg MCHC 33.1 (32.2-35.5) g/dL RDW 12.7 (11.7-14.4) % Plt Count 310 (182-369) x10^3/uL MPV 9.8 (9.4-12.3) fL Gran % 59.8 (34.0-71.1) % Immature Gran % (Auto) 0.3 (0.001-0.429) % Nucleat RBC Rel Count 0.0 (0.00-0.2) % Eos # (Auto) 0.19 (0.04-0.36) x10^3/uL Immature Gran # (Auto) 0.03 (0.001-0.031) x10^3u/L Absolute Lymphs (auto) 2.47 (1.18-3.74) x10^3/uL Absolute Monos (auto) 1.02 H (0.24-0.86) x10^3/uL Absolute Nucleated RBC 0.00 (0.00-0.012) x10^3u/L Lymphocytes % 26.3 (19.3-51.7) % Monocytes % 10.9 (4.7-12.5) % Eosinophils % 2.0 (0.7-5.8) % Basophils % 0.7 (0.1-1.2) % Absolute Granulocytes 5.62 (1.56-6.13) x10^3/uL Basophils # 0.07 (0.01-0.08) x10^3/uL Sodium 138 (135-145) mmol/L Potassium 4.4 (3.5-5.1) mmol/L Chloride 105 (98-107) mmol/L Carbon Dioxide 24 (22-30) mmol/L Anion Gap 13.9 (5-15) MEQ/L BUN 25 H (7-17) mg/dL Creatinine 1.33 H (0.52-1.04) mg/dL Estimated GFR 43.6 ML/MIN Glucose 112 H (74-106) mg/dL Calcium 10.1 (8.4-10.2) mg/dL Total Bilirubin 0.50 (0.2-1.3) mg/dL AST 22 (14-36) U/L ALT 13 (0-35) U/L Alkaline Phosphatase 113 (38-126) U/L Serum Total Protein 7.4 (6.3-8.2) g/dL Albumin 4.1 (3.5-5.0) g/dL Urine Color Yellow (Yellow) Urine Appearance Cloudy A (Clear) Urine pH 5.5 (4.6-8.0) Ur Specific [place] 1.025 (1.005-1.030) Urine Protein 30 (Negative) Urine Glucose (UA) Negative (Negative) mg/dL Urine Ketones Trace A (Negative) Urine Blood Negative (Negative) Urine Nitrite Negative (Negative) Urine Bilirubin Negative (Negative) Urine Urobilinogen 1.0 A (0.2) mg/dL Ur Leukocyte Esterase Moderate A (Negative) U Hyaline Cast (Auto) NONE SEEN (0-2) /LPF Urine Microscopic RBC 3-5 (0-5) /HPF Urine Microscopic WBC >100 A (0-5) /HPF Ur Epithelial Cells Few (None Seen) /HPF Urine Bacteria None Seen (None Seen) /HPF Urine Culture Reflexed YES (NO) - Progress Progress: improved Progress Note: Patient has 1 kidney. However she received 1 full dose 500 mg Levaquin p.o. Patient has 1 kidney but her creatinine clearance is 61. The cutoff for renal dose Levaquin is a creatinine clearance of 50 or less. 08/31/25 14:00 Patient is a 70-year-old female history of kidney cancer post left nephrectomy, hyperlipidemia type 2 diabetes presents to our ED for evaluation of left lower back pain that started yesterday. No trauma no fever. Pain appears to be worse with movement. Patient feels she pulled a muscle. Patient had a nephrectomy in September 2024. No associated chest pain or shortness of breath. No nausea vomiting or diaphoresis. No saddle anesthesia. No recent back procedures. No change in bowel bladder function. Patient voices no other complaints or concerns at this time. Physical exam reveals tenderness to palpation left lower back. CT scan negative for acute pathology. 3D recons view lumbar spine negative for acute pathology as well. Patient currently on Keflex and has been on Keflex for the past 4 days. However and spite her urine infection appears to have gotten worse and at the very least has not improved. Patient received a dose of Levaquin in our ED. A prescription for Levaquin forwarded to patient's pharmacy. We attempted to contact patient's primary provider to update them on the patient's kidney function. Patient's creatinine is 1.33 which appears to be trending upward. We called Dr. Cary Ro at [phone]. No answer no return call. We contacted her nurse to [facility] at [phone] no answer no return call. Patient advised to follow-up with her providers for reevaluation. A prescription for Levaquin forwarded to patient's pharmacy. Patient's pain significantly improved. Patient that she is ready for discharge. at bedside. They voiced no other complaints or concerns at this time. Stray obtained from patient and her who is at the bedside. Differential diagnosis includes ureterolithiasis, UTI, lumbosacral strain, trauma Complexity of problems addressed is moderate acute complicated. No critical care time. Complexity of data reviewed and analyzed is extensive. Test ordered test reviewed results analyzed and correlated clinically with history and physical exam. We reached out to patient's providers. However no return call. Risk of complication and or risk of morbidity/mortality of patient management is moderate. A prescription for Levaquin forwarded to patient's pharmacy. Vital stable. Time spent to discharge patient is approximately 20 minutes. Plan of care established for shared decision making. No social determinants of health present to impede follow-up. Portions of this note were created with voice recognition technology. There may be grammatical, spelling, punctuation or sound alike errors 08/31/25 14:03 08/31/25 14:47 Counseled pt/family regarding: lab results, diagnosis, need for follow-up, rad results - Departure Departure Disposition: Home Clinical Impression: Back pain, UTI (urinary tract infection), Elevated serum creatinine Condition: Stable Critical Care Time: No Referrals: MOISES VOGT NP [Primary Care Provider, [facility]] - Follow up/PCP as directed Additional Instructions: Discharge/Care Plan JESUS ALBERTO LEGER was seen on 08/31/25 in the Emergency Room. The patient was counseled regarding Diagnosis,Lab results, Imaging studies, need for follow up and when to return to the Emergency Room. Prescriptions given: Discharge Note I have spoken with the patient and/or caregivers. I have explained the patient's condition, diagnosis and treatment plan based on the information available to me at this time. I have answered the patient's and/or caregiver's questions and addressed any concerns. The patient and/or caregivers have as good understanding of the patient's diagnosis, condition and treatment plan as can be expected at this point. The vital signs have been stable. The patient's condition is stable and appropriate for discharge from the emergency department. The patient will pursue further outpatient evaluation with the primary care physician or other designated or consulting physician as outlined in the discharge instructions. The patient and/or caregivers are agreeable to this plan of care and follow-up instructions have been explained in detail. The patient and/or caregivers have received these instruction. The patient/and or caregivers are aware that any significant change in condition or worsening of symptoms should prompt an immediate return to this or the closest emergency department or call 911. Prescriptions: Levofloxacin [Levaquin 500 MG Tablet] 500 mg PO DAILY #7 tablet
[2025-08-31] MEDS ORDERED: Levofloxacin 500 MG Tablet ONE (12:40)
[2025-08-31] MEDS: Levofloxacin 500 MG Tablet PO ONE (12:41)
[2025-08-31 13:02] LABS: BASOPHIL % 0.7 % (0.1-1.2); Basophil (Absolute #) 0.07 x10^3/uL (0.01-0.08); Eosinophil (Absolute #) 0.19 x10^3/uL (0.04-0.36); Hematocrit 35.0 % (34.1-44.9); Hemoglobin 11.6 g/dL (11.2-15.7); IMMATURE GRAN # 0.03 x10^3u/L (0.001-0.031); IMMATURE GRAN % 0.3 % (0.001-0.429); Lymphocyte (Absolute #) 2.47 x10^3/uL (1.18-3.74); Mean Corpuscular Hemoglobin 32.5 pg (25.6-32.2); Mean Corpuscular Hgb Concent. 33.1 g/dL (32.2-35.5); Monocyte (Absolute #) 1.02 x10^3/uL (0.24-0.86); NUCLEATED RBC # 0.00 x10^3u/L (0.00-0.012); NUCLEATED RBC % 0.0 % (0.00-0.2); Platelet Count 310 x10^3/uL (182-369); Red Blood Count 3.57 x10^6/uL (3.93-5.22); White Blood Count 9.4 x10^3/uL (3.98-10.04)
[2025-08-31 13:16] LABS: Calcium 10.1 mg/dL (8.4-10.2); Carbon Dioxide 24.0 mmol/L (22-30); Creatinine 1 1.33 mg/dL (0.52-1.04); EST GLOMERULAR FILTRATION RATE 43.6 ML/MIN; Glucose 112.0 mg/dL (74-106); Potassium 4.4 mmol/L (3.5-5.1); SGOT/AST 22.0 U/L (14-36); SGPT/ALT 13.0 U/L (0-35); Total Protein 7.4 g/dL (6.3-8.2)
[2025-08-31 14:05] VITALS: O2SAT 96
[2025-08-31 14:49] VITALS: BP 145/75; PULSE 68; RESP 14
== END 2025-08-31 14:57 | disposition home or self-care (01) ==
LOC: ED 09:26
DX: N39.0 Urinary tract infection, site not specified (principal); R79.89 Other specified abnormal findings of blood chemistry; M54.50 Low back pain, unspecified; E11.9 Type 2 diabetes mellitus without complications; Z79.84 Long term (current) use of oral hypoglycemic drugs; Z79.899 Other long term (current) drug therapy